=== PATIENT | female | born 1955 | race Caucasian/White ===

== ENCOUNTER 2022-07-02 06:11 | Day surgery (SDC) | payer OTHER ==
[~2022-07-02] VITALS: Ht 165.1 cm; Wt 71.7 kg
[~2022-07-02 06:11] MED LIST: ATORVASTATIN CA40 MG PO; FARXIGA10 MG PO; [UNRECOGNIZED DRUG - REMARK]
== END 2022-07-02 17:00 | disposition home or self-care (01) ==
LOC: CIR.AMB 06:11
PROVIDERS: ATTEND Surgery
DX: D05.12 Intraductal carcinoma in situ of left breast (principal); Z17.0 Estrogen receptor positive status [ER+]; R59.0 Localized enlarged lymph nodes; Z20.822 Contact with and (suspected) exposure to COVID-19; E78.5 Hyperlipidemia, unspecified
CPT/HCPCS: 19301; 19281; 38525; 78195; L8699